=== PATIENT | female | born 1970 | race Caucasian/White ===

== ENCOUNTER 2017-04-13 05:41 | Emergency (ER) | payer SELFPAY ==
[~2017-04-13] VITALS: Ht 165.1 cm; Wt 74.8 kg
[2017-04-13 06:54] LABS: Eosinophils # (auto) 0 uL; Eosinophils % (auto) 0.1 % (0.0-7.0); Lymphocytes # (auto) 0.2 uL; White Blood Cell 2.5 10^3/uL (4.4-10.8)
[2017-04-13 06:56] LABS: Basophils # (auto) 0.1 uL; Basophils % (auto) 2.3 % (0.0-2.0); Hematocrit 22.4 % (36.0-46.0); Lymphocytes % (auto) 8.6 % (10.0-50.0); Mean Corpuscular Hemoglobin 28.4 pg (28.0-32.0); Mean Corpuscular Hgb Conc. 26.7 g/dL (32.0-36.0); Mean Corpuscular Volume 106.6 fL (80.0-100.0); Mean Platelet Volume 9.8 fL (6.9-10.8); Monocytes # (auto) 0.2 uL; Monocytes % (auto) 8.8 % (0.0-12.0); Neutrophils % (auto) 80.2 % (37.0-80.0); Nucleated Red Blood Cells % 1.6 %; Platelet Count (auto) 47 10^3/uL (140-450); Red Cell Distribution Width 18.7 % (11.8-14.3)
[2017-04-13 07:10] LABS: Urine Bilirubin Negative (Negative); Urine Blood 1+ /uL (Negative); Urine Color Yellow (Yellow); Urine Glucose Normal (Normal); Urine Hyaline Cast FEW /lpf (0 - 2); Urine Ketone 2+ (Negative); Urine Nitrite Negative (Negative); Urine RBC 2 /hpf (0 - 4); Urine Squamous Epithelial Cell FEW /hpf (<5)
[2017-04-13 07:18] LABS: Albumin 2.1 g/dL (3.4-5.0); BUN/Creatinine Ratio 11.7; Bilirubin, Total 1.4 mg/dL (0.2-1.0); Total Protein 4.8 g/dL (6.4-8.2)
[2017-04-13 07:22] LABS: Potassium 2.6 mmol/L (3.5-5.1)
[2017-04-13 07:23] LABS: Calcium 5.3 mg/dL (8.5-10.1)
[2017-04-13] MEDS ORDERED: MIDAZOLAM HCL 5 MG/ML-1ML VIAL ONE (07:25)
[2017-04-13] MEDS ORDERED: CALCIUM CHL 100MG/ML 1,000 MG in D5W 5% 100 ML IV ONE (07:30)
[2017-04-13] MEDS ORDERED: POTASSIUM CHL 20MEQ/100ML 100 ML IV SCH (07:30)
[2017-04-13] MEDS ORDERED: CALCIUM CHLOR(10%) 100MG/ML 10ML SYRINGE IV ONE (07:33)
[2017-04-13] MEDS ORDERED: POTASSIUM CHL 10% (20 MEQ/15ML) 15ml ORAL SOLN ONE (07:33)
[2017-04-13] MEDS ORDERED: MANNITOL 20 % (20GM/100ML) 500 ML IV ONE (07:36)
[2017-04-13 07:40] LABS: Base Excess -23.1 mmol/L (-2.0-2.0); Blood 02Sat 89.8 % (96-100); Blood COHb 0.6 % (0.5-1.5); Blood MetHb 0.9 % (0.0-1.5); HCO3 4.5 mmol/L (22-26.0); MODE ROOM AIR; O2Hb 88.5 % (94.0-97.0); PCO2 14.6 mmHg (35.0-45.0); PO2 91.7 mmHg (80.0-100.0); PO2(T) 86.1 mmHg (80.0-100.0); Sample Type Arterial; pH 7.102 (7.350-7.450)
[2017-04-13] MEDS ORDERED: NOREPINEPHRINE BITARTRATE 250 ML IV ONE (08:04)
[2017-04-13 08:15] VITALS: BP 79/46
[2017-04-13 08:17] LABS: INR 1.1 (0.9-1.15); Partial Thromboplastin Time 28.7 sec (22.64-33.71)
[2017-04-13] MEDS ORDERED: SODIUM CHLORIDE 0.9% 500 ML IV ONE (08:30)
[2017-04-13] MEDS ORDERED: POTASSIUM CHL 10% (20 MEQ/15ML) 15ml ORAL SOLN GT ONE (08:30)
[2017-04-13] MEDS ORDERED: MANNITOL 20% SOLN 100 gm/500ml 250 ML IV ONE (08:30)
[2017-04-13] MEDS ORDERED: MIDAZOLAM HCL 5 MG/ML-1ML VIAL IV ONE (08:30)
[2017-04-13] MEDS ORDERED: NOREPINEPHRINE BITARTRATE 250 ML IV SCH (08:30)
[2017-04-13] MEDS ORDERED: SODIUM CHLORIDE 0.9% 1,000 ML IV ONE (08:30)
== END 2017-04-13 08:44 | disposition short-term general hospital (02) ==
LOC: ER 05:41 → EDBD 05:41 → EDUNIT# 05:41 → ER 08:44
DX: S06.5X9A Traumatic subdural hemorrhage with loss of consciousness of unspecified duration, initial encounter (principal); D64.9 Anemia, unspecified; E87.6 Hypokalemia; E83.51 Hypocalcemia; F10.120 Alcohol abuse with intoxication, uncomplicated; D69.6 Thrombocytopenia, unspecified; F17.210 Nicotine dependence, cigarettes, uncomplicated; W19.XXXA Unspecified fall, initial encounter; Y93.89 Activity, other specified; Y99.8 Other external cause status; Y92.89 Other specified places as the place of occurrence of the external cause
CPT/HCPCS: 31500; 36415; 36600; 70450; 71010; 80053; 80307; 80320; 81001; 82805; 84702; 85025; 85610; 85730; 86850; 86900; 86901; 93005; 96365; 96366; 96368; 99291; J2250; J3480; J7030; 94002; J7060